=== PATIENT | female | born 1985 | race American Indian/Alaskan Native ===

== ENCOUNTER 2017-02-27 12:07 | Emergency (ER) | payer OTHER ==
[2017-02-27 12:46] VITALS: BP 119/68
== END 2017-02-27 15:27 | disposition home or self-care (01) ==
LOC: ED 12:07
DX: F41.9 Anxiety disorder, unspecified (principal)
CPT/HCPCS: 82962; 99283

== ENCOUNTER 2019-01-14 08:08 | Inpatient (IN) | payer OTHER ==
[2019-01-14] MEDS ORDERED: LACTATED RINGERS 1,000 ML ONE (08:47)
[2019-01-14] MEDS ORDERED: MAGNESIUM SULFATE 40GM/1000ML 40 GM/1,000 ML BAG IV ONE (09:18)
[2019-01-14] MEDS ORDERED: AMPICILLIN/NS 2 GM/100 ML 2 GM/100 ML BAG IV ONE (09:18)
[2019-01-14] MEDS ORDERED: MAGNESIUM SULFATE 4GM/100ML 4 GM/100 ML BAG IV ONE ×2 (09:18→09:20)
[2019-01-14] MEDS: CELESTONE SOLUSPAN IM SCH (09:22)
[2019-01-14] MEDS: AMPICILLIN/NS 2 GM/100 ML 2 GM/100 ML BAG IV SCH ×3 (09:25→23:31)
[2019-01-14 09:27] LABS: Bacteria,Urine 4+ /HPF (Negative); Bilirubin,Urine NEG (Negative); Blood,Urine LG (Negative); Color,Urine Yellow (Yellow); Mucus,Urine 2+ /HPF; Protein,Urine <15 mg/dL mg/dL (Negative)
[2019-01-14] MEDS ORDERED: LACTATED RINGERS 500 ML IV ONE (09:30)
[2019-01-14 09:39] LABS: Basophils # (Auto) 0.1 K/mm3 (0.0-0.1); Basophils % (Auto) 0.5 % (0.0-1.8); Eosinophils % (Auto) 0.1 % (0.0-4.3); Hematocrit 32.6 % (30.3-42.9); Lymphocytes # (Auto) 1.6 K/mm3 (1.2-5.4); Lymphocytes % (Auto) 11.3 % (13.4-35.0); Mean Corpuscular HGB Conc 34 % (30-34); Mean Corpuscular Volume 87 fl (79-97); Monocytes # (Auto) 1.2 K/mm3 (0.0-0.8); Monocytes % (Auto) 8.1 % (0.0-7.3); Platelet Count 203 K/mm3 (140-440); Red Blood Count 3.77 M/mm3 (3.65-5.03); Red Cell Distribution Width 14.5 % (13.2-15.2)
[2019-01-14] MEDS: MAGNESIUM SULFATE 40GM/1000ML 40 GM/1,000 ML BAG IV SCH (10:00)
[2019-01-14] MEDS ORDERED: BRETHINE SUB-Q ONE (10:00)
[2019-01-14] MEDS: STADOL IV PRN (11:55)
--- NOTE | 2019-01-14 12:10 | Ultrasound Report ---
OB ULTRASOUND History: Vaginal bleeding during . Technique: Transabdominal ultrasound with Doppler interrogation. Comparison: None at this facility. Gestation: Single Position: Breech Amniotic Fluid: Normal [place] = 16.4 cm Placenta: Fundal Placental Grade: 0 Heart Rate: 152 BPM Cervical length: The cervix is obscured. No cervical length measurement could be made. The technologist questioned whether there was cervical funneling which I do not clearly see. NEUROANATOMY VISUALIZED: Choroid Plexus Lateral Ventricle ANATOMY VISUALIZED: Stomach Bladder Diaphragm 4 Chamber Heart Heart 3 Vessel Cord Abd. Cord Insert SPINE VISUALIZED: Longitudinal The following are not demonstrated due to maternal body habitus or lie: Cerebellum, cisterna magnum, kidneys and transverse views of the spine BPD: 6.3 cm = 25 w 2 d HC: 23.8 cm = 25 w 6 d AC: 20.8 cm = 25 w 3 d FL: 4.6 cm = 25 w 2 d HC/AC Ratio: 80.7 Cephalic Index: 81.1 Estimated Weight: 808 grams Clinical age = 25 w 3 d EDC: 04/26/19 US Gest. Age = 25 w 3 d EDC: 04/26/19 IMPRESSION: Viable, single intrauterine as described.
--- NOTE | 2019-01-14 12:47 | History and Physical Report ---
History of Present Illness Date of examination: 01/14/19 Date of admission: 01/14/19 09:08 Chief complaint: vaginal bleeding and cramping History of present illness: 33-year-old at 25+3 weeks presents to labor and delivery triage with complaints of vaginal bleeding and uterine cramping. The patient stated she began having intermittent cramping yesterday and awoke this morning with findings of vaginal bleeding. She denies any leakage of fluid. There has not been any precipitating event for her current complaints. She denies any recent sexual intercourse. OB ultrasound in triage demonstrated a dilated cervical os O4 centimeters and a garcia intrauterine and breech presentation. Patient transferred her care @ 17 weeks. Past History Past Medical History: no pertinent history Past Surgical History: no surgical history Social history: - Obstetrical History Expected Date of Delivery: 04/26/19 Actual Gestation: 25 Week(s) 3 Day(s) : 2 Para: 1 Hx # Term Pregnancies: 1 Number of Pregnancies: 0 Spontaneous Abortions: 0 Induced : 0 Number of Living Children: 1 Medications and Allergies Allergies Allergy/AdvReac Type Severity Reaction Status Date / Time No Known Allergies Allergy Verified 01/14/19 09:14 Home Medications Medication Instructions Recorded Confirmed Last Taken Type No Known Home Medications [No 02/27/17 02/27/17 Unknown History Reported Home Medications] Active Meds: Active Medications Betamethasone Acet/Betameth SodPhos (Celestone Soluspan) 12 mg IM Q24HR NELL Stop: 01/15/19 10:01 Last Admin: 01/14/19 09:22 Dose: 12 mg Documented by: Butorphanol Tartrate (Stadol) 2 mg IV Q3H PRN PRN Reason: Labor Pain Last Admin: 01/14/19 11:55 Dose: 2 mg Documented by: Lactated Ringer's (Lactated Ringers) 1,000 mls @ 125 mls/hr IV DIRECT NELL Magnesium Sulfate (Magnesium Sulfate 40gm/1000ml) 40 gm in 1,000 mls @ 50 mls/ hr IV DIRECT NELL Last Admin: 01/14/19 10:00 Dose: 2 gm/hr, 50 mls/hr Documented by: Ampicillin Sodium (Polycillin/Ns 2 Gm/100 Ml) 2 gm in 100 mls @ 100 mls/hr IV Q6H NELL Stop: 01/16/19 03:59 Last Admin: 01/14/19 09:25 Dose: 100 mls/hr Documented by: Review of Systems All systems: negative Genitourinary: vaginal bleeding, pelvic pain, contractions, no leakage of fluid - Vital Signs Vital signs: Vital Signs Pulse BP 126 H 129/74 01/14/19 08:18 01/14/19 08:18 Temp Pulse Resp BP Pulse Ox 111 H 110/58 94 01/14/19 12:43 01/14/19 12:39 01/14/19 12:43 - Physical Exam Breasts: Positive: deferred Cardiovascular: Regular rate Lungs: Positive: Clear to auscultation Vagina: Positive: other (vaginal bleeding) Results Result Diagrams: 01/14/19 09:00 Abnormal lab results 01/14/19 Range/Units 09:00 WBC 14.6 H (4.5-11.0) K/mm3 Lymph % (Auto) 11.3 L (13.4-35.0) % [place] % (Auto) 8.1 H (0.0-7.3) % [place] # 1.2 H (0.0-0.8) K/mm3 Seg Neutrophils % 80.0 H (40.0-70.0) % Seg Neutrophils # 11.7 H (1.8-7.7) K/mm3 All other labs normal. Assessment and Plan - Patient Problems (1) Vaginal bleeding during Current Visit: Yes Status: Acute Plan to address problem: admit for magnesium tocolysis, antibiotics and steroid NICU consult (2) labor Current Visit: Yes Status: Acute
[2019-01-14 13:56] LABS: Hepatitis C Virus Antibody Non-Reactive (NonReactive)
[2019-01-14] MEDS: LACTATED RINGERS 1,000 ML IV SCH (21:35)
--- NOTE | 2019-01-14 22:29 | Consultation ---
History of Present Illness Consult date: 01/14/19 Requesting physician: DEMETRA CARDENAS Reason for consult: prematurity History of present illness: Requested by Dr. Sanchez to inform mother regarding anticipated course and outcome of delivery at 25 completed weeks of a garcia fetus. Met with mother who is a 33 yo [id number] with EDC 04/26/2019 (EGA 25 3/7 wks). Uncomplicated until onset of vaginal bleeding and cramping 01/14. Evaluated in L&D and treated with Magnesium sulfate, Celestone, and ampicillin. U/S demonstrated nl [place], single fetus, breech presentation, dilated cervix, and no evidence of abruption. Since admission, bleeding has decreased and cramping less frequent. Discussed with mother the significance of completion of glucocorticoid treatment in terms of outcome. Advised mother that survival approaches greater than 60% for garcia fetuses following steroids. Discussed the major morbidities including chronic lung disease, necrotizing enterocolitis, late onset sepsis, intraventricular hemorrhage, and neurodevelopmental impairment as potential consequences of delivery at extremely early gestation. Mother listened intently and appears to understand. Assured mother of availability to answer further questions should they arise. Documentation - information: Height 5 ft 2 in Medications and Allergies Allergies Allergy/AdvReac Type Severity Reaction Status Date / Time No Known Allergies Allergy Verified 01/14/19 09:14 Home Medications Medication Instructions Recorded Confirmed Last Taken Type No Known Home Medications [No 02/27/17 02/27/17 Unknown History Reported Home Medications] Active Meds: Active Medications Betamethasone Acet/Betameth SodPhos (Celestone Soluspan) 12 mg IM Q24HR NELL Stop: 01/15/19 10:01 Last Admin: 01/14/19 09:22 Dose: 12 mg Documented by: Butorphanol Tartrate (Stadol) 2 mg IV Q3H PRN PRN Reason: Labor Pain Last Admin: 01/14/19 11:55 Dose: 2 mg Documented by: Lactated Ringer's (Lactated Ringers) 1,000 mls @ 125 mls/hr IV DIRECT NELL Last Admin: 01/14/19 21:35 Dose: 75 mls/hr Documented by: Magnesium Sulfate (Magnesium Sulfate 40gm/1000ml) 40 gm in 1,000 mls @ 50 mls/hr IV DIRECT NELL Last Admin: 01/14/19 10:00 Dose: 2 gm/hr, 50 mls/hr Documented by: Ampicillin Sodium (Polycillin/Ns 2 Gm/100 Ml) 2 gm in 100 mls @ 100 mls/hr IV Q6H NELL Stop: 01/16/19 03:59 Last Admin: 01/14/19 16:25 Dose: 100 mls/hr Documented by: Exam Vital Signs Pulse BP 126 H 129/74 01/14/19 08:18 01/14/19 08:18 Temp Pulse Resp BP Pulse Ox 98.1 F 114 H 16 130/68 97 01/14/19 16:59 01/14/19 21:56 01/14/19 16:59 01/14/19 21:40 01/14/19 21:56 Results - Laboratory Findings 01/14/19 09:00 Abnormal lab results 01/14/19 01/14/19 Range/Units 09:00 17:55 WBC 14.6 H (4.5-11.0) K/mm3 Lymph % (Auto) 11.3 L (13.4-35.0) % [place] % (Auto) 8.1 H (0.0-7.3) % [place] # 1.2 H (0.0-0.8) K/mm3 Seg Neutrophils % 80.0 H (40.0-70.0) % Seg Neutrophils # 11.7 H (1.8-7.7) K/mm3 Magnesium 5.20 H (1.7-2.3) mg/dL
[2019-01-15] MEDS: AMPICILLIN/NS 2 GM/100 ML 2 GM/100 ML BAG IV SCH ×3 (06:32→21:34)
[2019-01-15] MEDS: MAGNESIUM SULFATE 40GM/1000ML 40 GM/1,000 ML BAG IV SCH (06:35)
--- NOTE | 2019-01-15 08:39 | Progress Note ---
Assessment and Plan A/P HD2 PTL s/p 1 dose steroids s/p NICCU on mag consult with MFM continue presnet mgt Subjective - Subjective Date of service: 01/15/19 Principal diagnosis: PTL, vaginal bleeding Patient reports: vaginal bleeding, movement normal, no new complaints, no loss of fluid, no contractions Objective - Vital Signs Vital Signs: Vital Signs - 12hr 01/14/19 01/14/19 01/14/19 20:36 20:38 20:39 Temperature Pulse Rate 115 H 112 H 112 H Respiratory Rate Blood Pressure 120/64 Blood Pressure [Right] O2 Sat by Pulse 97 94 Oximetry 01/14/19 01/14/19 01/14/19 20:41 20:43 20:46 Temperature Pulse Rate 111 H 112 H 113 H Respiratory Rate Blood Pressure Blood Pressure [Right] O2 Sat by Pulse 95 94 96 Oximetry 01/14/19 01/14/19 01/14/19 20:49 20:51 20:54 Temperature Pulse Rate 111 H 111 H 109 H Respiratory Rate Blood Pressure Blood Pressure [Right] O2 Sat by Pulse 94 96 94 Oximetry 01/14/19 01/14/19 01/14/19 20:56 21:01 21:06 Temperature Pulse Rate 111 H 109 H 118 H Respiratory Rate Blood Pressure Blood Pressure [Right] O2 Sat by Pulse 95 96 96 Oximetry 01/14/19 01/14/19 01/14/19 21:09 21:11 21:16 Temperature Pulse Rate 112 H 111 H 112 H Respiratory Rate Blood Pressure 119/58 Blood Pressure [Right] O2 Sat by Pulse 96 95 Oximetry 01/14/19 01/14/19 01/14/19 21:19 21:21 21:25 Temperature Pulse Rate 113 H 109 H 113 H Respiratory Rate Blood Pressure Blood Pressure [Right] O2 Sat by Pulse 94 97 94 Oximetry 01/14/19 01/14/19 01/14/19 21:26 21:31 21:33 Temperature Pulse Rate 120 H 114 H 119 H Respiratory Rate Blood Pressure Blood Pressure [Right] O2 Sat by Pulse 96 95 94 Oximetry 01/14/19 01/14/19 01/14/19 21:36 21:38 21:40 Temperature Pulse Rate 116 H 116 H 111 H Respiratory Rate Blood Pressure 130/68 Blood Pressure [Right] O2 Sat by Pulse 96 94 Oximetry 0301/14/19 01/14/19 21:41 21:44 21:46 Temperature Pulse Rate 110 H 112 H 112 H Respiratory Rate Blood Pressure Blood Pressure [Right] O2 Sat by Pulse 94 94 95 Oximetry 01/14/19 01/14/19 01/14/19 21:51 21:56 21:58 Temperature Pulse Rate 112 H 114 H 115 H Respiratory Rate Blood Pressure Blood Pressure [Right] O2 Sat by Pulse 96 97 94 Oximetry 01/14/19 01/14/19 01/14/19 22:01 22:06 22:09 Temperature Pulse Rate 114 H 113 H 113 H Respiratory Rate Blood Pressure 130/70 Blood Pressure [Right] O2 Sat by Pulse 97 97 91 Oximetry 01/14/19 01/14/19 01/14/19 22:11 22:16 22:21 Temperature Pulse Rate 115 H 107 H 107 H Respiratory Rate Blood Pressure Blood Pressure [Right] O2 Sat by Pulse 96 95 96 Oximetry 01/14/19 01/14/19 01/14/19 22:26 22:31 22:36 Temperature Pulse Rate 111 H 110 H 111 H Respiratory Rate Blood Pressure Blood Pressure [Right] O2 Sat by Pulse 97 96 97 Oximetry 01/14/19 01/14/19 01/14/19 22:39 22:41 22:46 Temperature Pulse Rate 108 H 114 H 112 H Respiratory Rate Blood Pressure 115/63 Blood Pressure [Right] O2 Sat by Pulse 95 94 Oximetry 01/14/19 01/14/19 01/14/19 22:47 22:51 22:55 Temperature Pulse Rate 111 H 111 H 109 H Respiratory Rate Blood Pressure Blood Pressure [Right] O2 Sat by Pulse 94 95 94 Oximetry 01/14/19 01/14/19 01/14/19 22:56 23:01 23:06 Temperature Pulse Rate 111 H 111 H 110 H Respiratory Rate Blood Pressure Blood Pressure [Right] O2 Sat by Pulse 95 94 94 Oximetry 01/14/19 01/14/19 01/14/19 23:07 23:09 23:11 Temperature Pulse Rate 106 H 110 H 110 H Respiratory Rate Blood Pressure 113/60 Blood Pressure [Right] O2 Sat by Pulse 94 94 Oximetry 01/14/19 01/14/19 01/14/19 23:14 23:16 23:21 Temperature Pulse Rate 112 H 110 H 106 H Respiratory Rate Blood Pressure Blood Pressure [Right] O2 Sat by Pulse 93 93 94 Oximetry 01/14/19 01/14/19 01/14/19 23:26 23:27 23:31 Temperature Pulse Rate 107 H 107 H 107 H Respiratory Rate Blood Pressure Blood Pressure [Right] O2 Sat by Pulse 94 94 94 Oximetry 01/14/19 01/14/19 01/14/19 23:34 23:36 23:40 Temperature Pulse Rate 114 H 109 H 113 H Respiratory Rate Blood Pressure 121/58 Blood Pressure [Right] O2 Sat by Pulse 94 95 Oximetry 01/14/19 01/14/19 01/14/19 23:41 23:43 23:45 Temperature 98.2 F Pulse Rate 107 H 107 H 113 H Respiratory 18 Rate Blood Pressure Blood Pressure 121/58 [Right] O2 Sat by Pulse 96 94 Oximetry 01/14/19 01/14/19 01/14/19 23:46 23:51 23:56 Temperature Pulse Rate 106 H 112 H 108 H Respiratory Rate Blood Pressure Blood Pressure [Right] O2 Sat by Pulse 94 96 95 Oximetry 01/15/19 01/15/19 01/15/19 00:01 00:06 00:09 Temperature Pulse Rate 108 H 103 H 102 H Respiratory Rate Blood Pressure 116/62 Blood Pressure [Right] O2 Sat by Pulse 95 96 Oximetry 01/15/19 01/15/19 01/15/19 00:11 00:16 00:21 Temperature Pulse Rate 107 H 100 H 100 H Respiratory Rate Blood Pressure Blood Pressure [Right] O2 Sat by Pulse 94 96 97 Oximetry 01/15/19 01/15/19 01/15/19 00:26 00:31 00:36 Temperature Pulse Rate 100 H 105 H 103 H Respiratory Rate Blood Pressure Blood Pressure [Right] O2 Sat by Pulse 96 96 95 Oximetry 01/15/19 01/15/19 01/15/19 00:39 00:41 00:46 Temperature Pulse Rate 101 H 103 H 112 H Respiratory Rate Blood Pressure 120/67 Blood Pressure [Right] O2 Sat by Pulse 97 94 Oximetry 01/15/19 01/15/19 01/15/19 00:51 00:56 01:01 Temperature Pulse Rate 104 H 103 H 108 H Respiratory Rate Blood Pressure Blood Pressure [Right] O2 Sat by Pulse 96 96 95 Oximetry 01/15/19 01/15/19 01/15/19 01:06 01:09 01:11 Temperature Pulse Rate 105 H 102 H 107 H Respiratory Rate Blood Pressure 120/69 Blood Pressure [Right] O2 Sat by Pulse 95 94 Oximetry 01/15/19 01/15/19 01/15/19 01:16 01:21 01:26 Temperature Pulse Rate 106 H 104 H 107 H Respiratory Rate Blood Pressure Blood Pressure [Right] O2 Sat by Pulse 96 95 95 Oximetry 01/15/19 01/15/19 01/15/19 01:31 01:36 01:39 Temperature Pulse Rate 111 H 117 H 114 H Respiratory Rate Blood Pressure 118/64 Blood Pressure [Right] O2 Sat by Pulse 96 95 Oximetry 01/15/19 01/15/19 01/15/19 01:41 01:47 01:51 Temperature Pulse Rate 112 H 107 H 106 H Respiratory Rate Blood Pressure Blood Pressure [Right] O2 Sat by Pulse 95 96 96 Oximetry 01/15/19 01/15/19 01/15/19 01:56 02:01 02:06 Temperature Pulse Rate 106 H 105 H 105 H Respiratory Rate Blood Pressure Blood Pressure [Right] O2 Sat by Pulse 95 95 96 Oximetry 01/15/19 01/15/19 01/15/19 02:10 02:12 02:16 Temperature Pulse Rate 106 H 105 H 105 H Respiratory Rate Blood Pressure 113/57 Blood Pressure [Right] O2 Sat by Pulse 96 95 Oximetry 01/15/19 01/15/19 01/15/19 02:21 02:26 02:32 Temperature Pulse Rate 107 H 107 H 107 H Respiratory Rate Blood Pressure Blood Pressure [Right] O2 Sat by Pulse 95 95 95 Oximetry 01/15/19 01/15/19 01/15/19 02:36 02:39 02:41 Temperature Pulse Rate 105 H 109 H 105 H Respiratory Rate Blood Pressure 119/62 Blood Pressure [Right] O2 Sat by Pulse 96 97 Oximetry 01/15/19 01/15/19 01/15/19 02:46 02:51 02:56 Temperature Pulse Rate 107 H 104 H 105 H Respiratory Rate Blood Pressure Blood Pressure [Right] O2 Sat by Pulse 96 96 98 Oximetry 01/15/19 01/15/19 01/15/19 03:01 03:06 03:09 Temperature Pulse Rate 103 H 109 H 102 H Respiratory Rate Blood Pressure 117/63 Blood Pressure [Right] O2 Sat by Pulse 97 99 Oximetry 01/15/19 01/15/19 01/15/19 03:11 03:16 03:21 Temperature Pulse Rate 109 H 104 H 103 H Respiratory Rate Blood Pressure Blood Pressure [Right] O2 Sat by Pulse 98 98 97 Oximetry 01/15/19 01/15/19 01/15/19 03:26 03:31 03:36 Temperature Pulse Rate 103 H 103 H 104 H Respiratory Rate Blood Pressure Blood Pressure [Right] O2 Sat by Pulse 97 96 96 Oximetry 01/15/19 01/15/19 01/15/19 03:39 03:42 03:47 Temperature Pulse Rate 108 H 103 H 101 H Respiratory Rate Blood Pressure 121/65 Blood Pressure [Right] O2 Sat by Pulse 97 97 Oximetry 01/15/19 01/15/19 01/15/19 03:52 03:56 04:01 Temperature Pulse Rate 103 H 104 H 101 H Respiratory Rate Blood Pressure Blood Pressure [Right] O2 Sat by Pulse 96 96 96 Oximetry 01/15/19 01/15/19 01/15/19 04:07 04:09 04:11 Temperature Pulse Rate 110 H 114 H 106 H Respiratory Rate Blood Pressure 130/57 Blood Pressure [Right] O2 Sat by Pulse 97 97 Oximetry 01/15/19 01/15/19 01/15/19 04:16 04:22 04:26 Temperature Pulse Rate 113 H 107 H 114 H Respiratory Rate Blood Pressure Blood Pressure [Right] O2 Sat by Pulse 95 97 97 Oximetry 01/15/19 01/15/19 01/15/19 04:31 04:37 04:39 Temperature Pulse Rate 107 H 107 H 106 H Respiratory Rate Blood Pressure 121/67 Blood Pressure [Right] O2 Sat by Pulse 96 97 Oximetry 01/15/19 01/15/19 01/15/19 04:42 04:46 04:52 Temperature Pulse Rate 111 H 109 H 110 H Respiratory Rate Blood Pressure Blood Pressure [Right] O2 Sat by Pulse 97 96 95 Oximetry 01/15/19 01/15/19 01/15/19 04:57 05:00 05:02 Temperature 98.2 F Pulse Rate 107 H 108 H 106 H Respiratory 18 Rate Blood Pressure Blood Pressure 108/59 [Right] O2 Sat by Pulse 95 95 Oximetry 01/15/19 01/15/19 01/15/19 05:07 05:09 05:12 Temperature Pulse Rate 106 H 106 H 103 H Respiratory Rate Blood Pressure 110/63 Blood Pressure [Right] O2 Sat by Pulse 95 95 Oximetry 01/15/19 01/15/19 01/15/19 05:17 05:22 05:27 Temperature Pulse Rate 108 H 113 H 113 H Respiratory Rate Blood Pressure Blood Pressure [Right] O2 Sat by Pulse 95 96 96 Oximetry 01/15/19 01/15/19 01/15/19 05:32 05:37 05:39 Temperature Pulse Rate 108 H 109 H 108 H Respiratory Rate Blood Pressure 108/59 Blood Pressure [Right] O2 Sat by Pulse 97 96 Oximetry 01/15/19 01/15/19 01/15/19 05:42 05:47 05:52 Temperature Pulse Rate 108 H 107 H 111 H Respiratory Rate Blood Pressure Blood Pressure [Right] O2 Sat by Pulse 96 95 96 Oximetry 01/15/19 01/15/19 01/15/19 05:57 06:02 06:07 Temperature Pulse Rate 106 H 112 H 105 H Respiratory Rate Blood Pressure Blood Pressure [Right] O2 Sat by Pulse 97 98 98 Oximetry 01/15/19 01/15/19 01/15/19 06:09 06:12 06:17 Temperature Pulse Rate 106 H 109 H 108 H Respiratory Rate Blood Pressure 116/65 Blood Pressure [Right] O2 Sat by Pulse 98 97 Oximetry 01/15/19 01/15/19 01/15/19 06:22 06:24 06:26 Temperature Pulse Rate 104 H 107 H 108 H Respiratory Rate Blood Pressure Blood Pressure [Right] O2 Sat by Pulse 97 91 96 Oximetry 01/15/19 01/15/19 01/15/19 06:32 06:37 06:39 Temperature Pulse Rate 109 H 109 H 106 H Respiratory Rate Blood Pressure 113/62 Blood Pressure [Right] O2 Sat by Pulse 96 96 Oximetry 01/15/19 01/15/19 01/15/19 06:42 06:47 06:52 Temperature Pulse Rate 109 H 110 H 108 H Respiratory Rate Blood Pressure Blood Pressure [Right] O2 Sat by Pulse 94 80 L 88 Oximetry 01/15/19 01/15/19 01/15/19 06:57 07:02 07:07 Temperature Pulse Rate 107 H 108 H 107 H Respiratory Rate Blood Pressure Blood Pressure [Right] O2 Sat by Pulse 88 88 89 Oximetry 0301/15/19 01/15/19 07:09 07:12 07:13 Temperature Pulse Rate 107 H 109 H Respiratory Rate Blood Pressure 112/57 Blood Pressure [Right] O2 Sat by Pulse 88 89 Oximetry 01/15/19 01/15/19 01/15/19 07:17 07:22 07:27 Temperature Pulse Rate 111 H 105 H 106 H Respiratory Rate Blood Pressure Blood Pressure [Right] O2 Sat by Pulse 97 95 95 Oximetry 01/15/19 01/15/19 01/15/19 07:32 07:37 07:39 Temperature Pulse Rate 106 H 103 H 102 H Respiratory Rate Blood Pressure 104/56 Blood Pressure [Right] O2 Sat by Pulse 95 95 Oximetry 01/15/19 01/15/19 01/15/19 07:42 07:47 07:52 Temperature Pulse Rate 103 H 103 H 108 H Respiratory Rate Blood Pressure Blood Pressure [Right] O2 Sat by Pulse 96 95 94 Oximetry 01/15/19 01/15/19 01/15/19 07:57 08:02 08:07 Temperature Pulse Rate 105 H 107 H 110 H Respiratory Rate Blood Pressure Blood Pressure [Right] O2 Sat by Pulse 95 96 95 Oximetry 01/15/19 01/15/19 01/15/19 08:09 08:12 08:17 Temperature Pulse Rate 110 H 106 H 105 H Respiratory Rate Blood Pressure 107/61 Blood Pressure [Right] O2 Sat by Pulse 96 96 Oximetry 01/15/19 01/15/19 01/15/19 08:22 08:24 08:27 Temperature Pulse Rate 102 H 114 H 104 H Respiratory Rate Blood Pressure Blood Pressure [Right] O2 Sat by Pulse 95 92 95 Oximetry 01/15/19 08:32 Temperature Pulse Rate 111 H Respiratory Rate Blood Pressure Blood Pressure [Right] O2 Sat by Pulse 97 Oximetry - Exam Breasts: deferred Cardiovascular: Regular rate, Normal S1 Lungs: Clear to auscultation, Normal air movement Abdomen: Present: normal appearance, normal bowel sounds. Absent: soft, tenderness, guarding Vulva: both: normal Uterus: Present: normal, firm, fundal height below umbilicus. Absent: bogginess, tenderness FHR: category 1 Uterine Contraction Pattern: Irregular Uterine Tone Measurement Phase: Resting Uterine Contraction Intensity: Mild Extremities: normal Deep Tendon Reflex Grade: Normal +2 - Labs Labs: Abnormal Labs 01/14/19 01/14/19 01/15/19 09:00 17:55 00:18 WBC 14.6 H Lymph % (Auto) 11.3 L [place] % (Auto) 8.1 H [place] # 1.2 H Seg Neutrophils % 80.0 H Seg Neutrophils # 11.7 H Magnesium 5.20 H 5.60 H 01/15/19 05:50 WBC Lymph % (Auto) [place] % (Auto) [place] # Seg Neutrophils % Seg Neutrophils # Magnesium 5.60 H Laboratory Results - last 24 hr 01/14/19 01/14/19 01/14/19 09:00 09:00 09:00 WBC 14.6 H RBC 3.77 Hgb 11.0 Hct 32.6 MCV 87 MCH 29 MCHC 34 RDW 14.5 Plt Count 203 Lymph % (Auto) 11.3 L [place] % (Auto) 8.1 H Eos % (Auto) 0.1 Baso % (Auto) 0.5 Lymph # 1.6 [place] # 1.2 H Eos # 0.0 Baso # 0.1 Seg Neutrophils % 80.0 H Seg Neutrophils # 11.7 H Magnesium Urine Color Yellow Urine Turbidity Clear Urine pH 6.0 Ur Specific [place] 1.023 Urine Protein <15 mg/dl Urine Glucose (UA) Neg Urine Ketones Tr Urine Blood Lg Urine Nitrite Pos Urine Bilirubin Neg Urine Urobilinogen 2.0 Ur Leukocyte Esterase Sm Urine WBC (Auto) 5.0 Urine RBC (Auto) 8.0 U Epithel Cells (Auto) 3.0 Urine Bacteria (Auto) 4+ Urine Mucus 2+ Hep Bs Antigen Hepatitis C Antibody HIV 1&2 Antibody Rapid HIV P24 Antigen Rubella IgG Antibody Blood Type A POSITIVE Antibody Screen Negative 01/14/19 01/14/19 01/14/19 09:00 09:00 13:36 WBC RBC Hgb Hct MCV MCH MCHC RDW Plt Count Lymph % (Auto) [place] % (Auto) Eos % (Auto) Baso % (Auto) Lymph # [place] # Eos # Baso # Seg Neutrophils % Seg Neutrophils # Magnesium Urine Color Urine Turbidity Urine pH Ur Specific [place] Urine Protein Urine Glucose (UA) Urine Ketones Urine Blood Urine Nitrite Urine Bilirubin Urine Urobilinogen Ur Leukocyte Esterase Urine WBC (Auto) Urine RBC (Auto) U Epithel Cells (Auto) Urine Bacteria (Auto) Urine Mucus Hep Bs Antigen Non-reactive Hepatitis C Antibody Non-reactive HIV 1&2 Antibody Rapid Non react HIV P24 Antigen Non react Rubella IgG Antibody Immune Blood Type Antibody Screen 01/14/19 01/15/19 01/15/19 17:55 00:18 05:50 WBC RBC Hgb Hct MCV MCH MCHC RDW Plt Count Lymph % (Auto) [place] % (Auto) Eos % (Auto) Baso % (Auto) Lymph # [place] # Eos # Baso # Seg Neutrophils % Seg Neutrophils # Magnesium 5.20 H 5.60 H 5.60 H Urine Color Urine Turbidity Urine pH Ur Specific [place] Urine Protein Urine Glucose (UA) Urine Ketones Urine Blood Urine Nitrite Urine Bilirubin Urine Urobilinogen Ur Leukocyte Esterase Urine WBC (Auto) Urine RBC (Auto) U Epithel Cells (Auto) Urine Bacteria (Auto) Urine Mucus Hep Bs Antigen Hepatitis C Antibody HIV 1&2 Antibody Rapid HIV P24 Antigen Rubella IgG Antibody Blood Type Antibody Screen
[2019-01-15] MEDS: CELESTONE SOLUSPAN IM SCH (09:36)
[2019-01-15] MEDS: LACTATED RINGERS 1,000 ML IV SCH (09:39)
[2019-01-15 10:18] LABS: Amphetamine Screen,Urine PRESUMPTIVE NEGATIVE; Benzodiazepines Screen,Urine PRESUMPTIVE NEGATIVE; Cannabinoid Screen,Urine PRESUMPTIVE NEGATIVE; Cocaine Screen,Urine PRESUMPTIVE NEGATIVE; Methadone Screen,Urine PRESUMPTIVE NEGATIVE; Opiate Screen,Urine PRESUMPTIVE NEGATIVE
--- NOTE | 2019-01-15 13:36 | Consultation ---
History of Present Illness Consult date: 01/15/19 Requesting physician: CHING BUCHANAN History of present illness: APA/MFM HPI 33 y/o LAURA 04/26/19 EGA 25 01/25 weeks req consult for vag bleeding and cervical dilation Presented yesterday morning with vaginal bleeding Bleeding started around 6 am - had suspected contractions - describes bleeding as heavy and resolved yesterday evening Still reports spotting today Denies intercourse Denies complications Receiving Steroids and Mg OB History 2004 Term F Denies med ds, surgery, allergies, STD's or C/D/D Labs UA - 4+ bact, WBC -5, RBC - 5 H/H , Plts at 203 Drug Screen Neg US [facility] - 01/14/19 EFW at 808 grams at 41% Placenta Fundal - did not mention if abruption seen Cervix noted to be 4 cm dilated Breech BP at 120/62 EFM at 120's no reg contractions Abd soft gravid NT Vag deferred - will req OB do spec Past History Past Medical History: no pertinent history Past Surgical History: no surgical history - Obstetrical History : 2 Medications and Allergies Allergies Allergy/AdvReac Type Severity Reaction Status Date / Time No Known Allergies Allergy Verified 01/14/19 09:14 Home Medications Medication Instructions Recorded Confirmed Last Taken Type No Known Home Medications [No 02/27/17 02/27/17 Unknown History Reported Home Medications] Active Meds: Active Medications Butorphanol Tartrate (Stadol) 2 mg IV Q3H PRN PRN Reason: Labor Pain Last Admin: 01/14/19 11:55 Dose: 2 mg Documented by: Lactated Ringer's (Lactated Ringers) 1,000 mls @ 125 mls/hr IV DIRECT NELL Last Admin: 01/15/19 09:39 Dose: 75 mls/hr Documented by: Magnesium Sulfate (Magnesium Sulfate 40gm/1000ml) 40 gm in 1,000 mls @ 50 mls/hr IV DIRECT NELL Last Admin: 01/15/19 06:35 Dose: 50 mls/hr Documented by: Ampicillin Sodium (Polycillin/Ns 2 Gm/100 Ml) 2 gm in 100 mls @ 100 mls/hr IV Q6H NELL Stop: 01/16/19 03:59 Last Admin: 01/15/19 10:48 Dose: 100 mls/hr Documented by: - Vital Signs Vital signs: Vital Signs Pulse BP 126 H 129/74 01/14/19 08:18 01/14/19 08:18 Temp Pulse Resp BP Pulse Ox 98.2 F 129 H 18 120/62 94 01/15/19 05:00 01/15/19 13:22 01/15/19 05:00 01/15/19 12:51 01/15/19 13:22 Results Result Diagrams: 01/14/19 09:00 Abnormal lab results 01/14/19 01/15/19 01/15/19 Range/Units 17:55 00:18 05:50 Magnesium 5.20 H 5.60 H 5.60 H (1.7-2.3) mg/dL All other labs normal. Assessment and Plan Impression: 1. H[place]ins IUP at 25 4/7 we 2. Vag Bleeding 3. Cervical Dilation 4. UTI 5. AMA 6. Breech Recommendations: 1. Steroids for FLM 2. Mg X 24 Hours for neuroprophylaxis then may dc 3. Send Urine for C&S if not done 4. NICU consult if not done 5. Seq Leg compressors 6. Please do Spec to see if membranes protruding and if ext os dilated 7. Type and Rh if not done (Rhogam if rh neg) 8. Disposition pending spec exam - If 4 cm dilated and still bleeding would rec in house conservative management. 9. Antibiotics for UTI - (currently on Amp) 10. Consent for C/S should bleeding worsen and also breech presentation
[2019-01-15] MEDS ORDERED: ROCEPHIN/NS 1 GM/50 ML 1 GM/50 ML BAG IV SCH (18:30)
[2019-01-16] MEDS: LACTATED RINGERS 1,000 ML IV SCH (02:00)
[2019-01-16] MEDS: MAGNESIUM SULFATE 40GM/1000ML 40 GM/1,000 ML BAG IV SCH (02:03)
[2019-01-16] MEDS: AMPICILLIN/NS 2 GM/100 ML 2 GM/100 ML BAG IV SCH (05:54)
--- NOTE | 2019-01-16 09:07 | Progress Note ---
Assessment and Plan A/P HD3 PTL, vaginal bleeding s/p 2 dose steroids s/p NICCU on mag appreciate consult from MFM rechecked cervicx and speculum exam membranes visualized prepare for csec ( ate at 7a) anticipate proceeding at 2p Patient had a long discussion of r/b/a of csec which include but not limited to bleeding infection damage to pelvic and non pelvic organs risk of hysterectomy risk of . Patient and voiced agreement to proceed Risk of prematurity discussed and patient continues to want a salpingectomy Subjective - Subjective Date of service: 01/16/19 Principal diagnosis: PTL, vaginal bleeding Patient reports: vaginal bleeding, movement normal, no new complaints, no loss of fluid, no contractions Objective - Vital Signs Vital Signs: Vital Signs - 12hr 01/15/19 01/16/19 01/16/19 21:49 02:49 03:49 Pulse Rate 100 H 100 H 91 H Blood Pressure 108/57 107/56 104/54 01/16/19 01/16/19 01/16/19 04:49 05:49 06:49 Pulse Rate 94 H 92 H 91 H Blood Pressure 101/52 104/52 102/55 01/16/19 01/16/19 07:52 08:51 Pulse Rate 102 H 115 H Blood Pressure 105/56 103/58 - Exam Breasts: deferred Cardiovascular: Regular rate, Normal S1 Lungs: Clear to auscultation, Normal air movement Abdomen: Present: normal appearance, soft, normal bowel sounds. Absent: distention, tenderness, guarding Vulva: both: normal Uterus: Present: normal, firm. Absent: bogginess, tenderness FHR: category 1 Cervical Dilatation: 5 Cervical Effacement Percentage: 90 station: -2 - Labs Labs: Abnormal Labs 01/14/19 01/14/19 01/15/19 09:00 17:55 00:18 WBC 14.6 H Lymph % (Auto) 11.3 L Dewitt % (Auto) 8.1 H Dewitt # 1.2 H Seg Neutrophils % 80.0 H Seg Neutrophils # 11.7 H Magnesium 5.20 H 5.60 H 01/15/19 05:50 WBC Lymph % (Auto) Dewitt % (Auto) Dewitt # Seg Neutrophils % Seg Neutrophils # Magnesium 5.60 H Laboratory Results - last 24 hr 01/15/19 09:05 Urine Opiates Screen Presumptive negative Urine Methadone Screen Presumptive negative Ur Barbiturates Screen Presumptive negative Ur Phencyclidine Scrn Presumptive negative Ur Amphetamines Screen Presumptive negative U Benzodiazepines Scrn Presumptive negative Urine Cocaine Screen Presumptive negative U Marijuana (THC) Screen Presumptive negative Drugs of Abuse Note Disclamer
[2019-01-16] MEDS: STADOL IV PRN (11:45)
[2019-01-16] MEDS ORDERED: AMPICILLIN/NS 2 GM/100 ML 2 GM/100 ML BAG IV ONE (12:00)
--- NOTE | 2019-01-16 12:57 | Event Note ---
Date: 01/16/19 Patient rechecked and denies any contractions.Bleeding has stopped ( for 2 days) and cervix still same at 5cm. Discussed with and patient and as patient has not been checked prior this was first check. NST reactive no contractions. Will continue to closely observe and if any bleeding increased, contractions or change in cervix will then proceed with csec secondary to breech. We discussed benefit to baby with more time in utero. Patient and both agree with plan
[2019-01-16] MEDS ORDERED: PEPCID IV ONE ×2 (19:40→19:45)
[2019-01-16] MEDS ORDERED: REGLAN IV ONE (19:40)
[2019-01-16] MEDS ORDERED: BICITRA PO ONE (19:42)
[2019-01-16] MEDS ORDERED: REGLAN ONE (19:45)
[2019-01-16] MEDS ORDERED: BICITRA ONE (19:45)
[2019-01-16] MEDS ORDERED: PITOCin/NS 20 UNIT/1000ML DRIP 20 UNITS/1,000 ML BAG IV SCH (20:00)
[2019-01-16] MEDS ORDERED: ANCEF/STERILE WATER 2 GM/20 ML IV NR (20:00)
[2019-01-16] MEDS ORDERED: DIPRIVAN 10 MG/ML IV ONE (20:15)
[2019-01-16] MEDS ORDERED: DECADRON ONE (20:23)
[2019-01-16] MEDS ORDERED: XYLOCAINE MPF 2% ONE (20:23)
[2019-01-16] MEDS ORDERED: ZOFRAN ONE (20:23)
[2019-01-16] MEDS ORDERED: SUBLIMAZE ONE (20:28)
[2019-01-16] MEDS ORDERED: VERSED ONE (20:29)
[2019-01-16] MEDS ORDERED: TORADOL ONE (20:32)
[2019-01-16] MEDS ORDERED: WATER FOR INJ Sterile (PF) 10 ML ONE (20:44)
[2019-01-16] MEDS ORDERED: ANCEF ONE (20:44)
[2019-01-16] MEDS ORDERED: DILAUDID ONE (21:07)
[2019-01-16] MEDS ORDERED: LACTATED RINGERS 2,000 ML ONE (21:12)
--- NOTE | 2019-01-16 21:30 | XRay Report ---
PROCEDURE: XR ABDOMEN 1V AP TECHNIQUE: Abdominal radiograph, single view. HISTORY: post fb count COMPARISONS: None . FINDINGS: Bowel gas pattern: Nonspecific . Masses or calcifications: None . Bony structures: No significant abnormality . Other: There are no radiopaque foreign bodies . IMPRESSION: No radiopaque foreign bodies. . This document is electronically signed by Jovan Holley MD., January 16 2019 09:29:00 PM ET
[2019-01-16] MEDS ORDERED: NARCAN 0.4 MG/1 ML IV PRN (21:56)
[2019-01-16] MEDS ORDERED: BENADRYL IV PRN (21:56)
[2019-01-16] MEDS ORDERED: ZOFRAN IV PRN (21:56)
[2019-01-16] MEDS ORDERED: NACL 0.9% 1000 ML 1,000 ML IV SCH (22:00)
[2019-01-16] MEDS ORDERED: DILAUDID PCA 6MG/30ML IV SCH (22:00)
--- NOTE | 2019-01-16 22:11 | Event Note ---
Date: 01/16/19 Called by nursing staff at approximately 1920 stating that fetus was having variable decelerations to 60s. I advised staff to prepare patient for . While en route to the hospital, I received a call stating that the patient had SROM and that there were parts in the vagina. Upon arrival patient was being transported to the OR for emergent .
--- NOTE | 2019-01-16 22:13 | Procedure Note ---
OB Delivery Note - Delivery Date of Delivery: 01/16/19 Surgeon: CHARITY MCCRAY Estimated blood loss: other (700) - Section Preop diagnosis: nonreassuring FHR tracing, breech Postop diagnosis: same section procedure: primary low transverse Disposition: PACU Complications: none Narrative: see op report - Infant A at 1 minute: 7 at 5 minutes: 8 Gender: Male (2pounds 1 ounce)
[2019-01-17] MEDS ORDERED: SODIUM CHLORIDE FLUSH SYRINGE 10 ML IV PRN (00:09)
[2019-01-17] MEDS ORDERED: PITOCin/NS 20 UNIT/1000ML DRIP 20 UNITS/1,000 ML BAG IV SCH (00:09)
[2019-01-17] MEDS ORDERED: TUCKS PAD TP PRN (00:09)
[2019-01-17] MEDS ORDERED: NARCAN 0.4 MG/1 ML IV PRN (00:09)
[2019-01-17] MEDS ORDERED: DILAUDID IV PRN (00:09)
[2019-01-17] MEDS ORDERED: LANSINOH TP PRN (00:09)
[2019-01-17] MEDS: SENOKOT S PO SCH ×2 (00:45→21:41)
[2019-01-17] MEDS: PERCOCET 5/325 PO PRN ×2 (12:42→23:26)
[2019-01-17] MEDS: IBUPROFEN PO PRN (12:42)
[2019-01-17 13:43] LABS: Hematocrit 21.8 % (30.3-42.9); Hemoglobin 7.4 gm/dl (10.1-14.3)
--- NOTE | 2019-01-17 13:49 | Progress Note ---
Assessment and Plan POD1 s/p for PTL, abruption and breech presentation. Patient doing well. She has not been down to see baby yet. Encourage ambulation. Subjective - Subjective Date of service: 01/17/19 Principal diagnosis: PTL, vaginal bleeding Interval history: S/P primary LTCS. Patient reports: appetite normal, voiding normally, pain well controlled, flatus, ambulating normally : in NICU Objective - Vital Signs Latest vital signs: Vital Signs Temp Pulse Resp BP Pulse Ox 01/17/19 12:42 20 01/17/19 12:00 20 01/17/19 10:05 20 01/17/19 09:27 98.4 F 105 H 20 108/56 98 01/17/19 08:15 20 01/17/19 06:00 18 01/17/19 04:59 98.8 F 109 H 20 114/64 94 01/17/19 04:00 16 01/17/19 02:00 16 01/17/19 00:55 98.3 F 109 H 24 119/61 86 01/17/19 00:45 18 01/16/19 22:30 100 H 20 124/67 100 01/16/19 22:15 98.2 F 100 H 19 127/71 100 01/16/19 22:00 113 H 19 131/70 100 01/16/19 21:45 114 H 18 127/71 100 01/16/19 21:40 113 H 14 125/70 88 01/16/19 21:37 98.1 F 121 H 16 127/66 88 01/16/19 20:02 112 H 100 01/16/19 19:57 107 H 100 01/16/19 19:52 103 H 95 01/16/19 19:47 106 H 97 01/16/19 18:50 96 H 105/50 01/16/19 17:51 97 H 106/56 01/16/19 17:49 99 H 105/55 01/16/19 16:49 98 H 109/52 01/16/19 16:18 98.3 F 18 01/16/19 15:49 95 H 109/55 01/16/19 14:51 96 H 108/54 01/16/19 13:49 90 104/57 Intake and Output 01/16/19 01/17/19 01/17/19 22:59 06:59 14:59 Intake Total 480 Output Total 500 350 Balance -500 130 Intake: Intake, Free Water 480 Output: Urine 500 350 Indwelling Catheter 350 Uretheral ([place]) 500 Other: Total, Output Amount 350 Estimated Blood Loss 500 - Exam Breasts: Present: deferred Cardiovascular: Present: Regular rate, Normal S1, Normal S2 Lungs: Present: Clear to auscultation, Normal air movement Abdomen: Present: normal appearance, soft, normal bowel sounds Uterus: Present: normal, firm Extremities: Present: normal Deep Tendon Reflex Grade: Normal +2 Incision: Present: normal, dry, intact, dressed - Labs Labs: Abnormal lab results 01/17/19 Range/Units 13:14 Hgb 7.4 L (10.1-14.3) gm/dl Hct 21.8 L (30.3-42.9) %
[2019-01-17] MEDS: FEOSOL PO SCH (21:41)
[2019-01-18] MEDS: PERCOCET 5/325 PO PRN ×3 (05:38→23:21)
[2019-01-18] MEDS: FEOSOL PO SCH ×2 (09:06→21:55)
[2019-01-18] MEDS: SENOKOT S PO SCH ×2 (09:06→21:56)
--- NOTE | 2019-01-18 11:31 | Operative Report ---
Operative Report Operative Report: The operative report for patient Reena De Oliveira Date of service 01/16/2019 Preoperative diagnosis: Intrauterine at 25 2/7weeks 2. Placental abruption 3. labor 4. Breech presentation 5. PPROM Postoperative diagnosis: Same Procedure: Primary low transverse section Surgeon: Dr. Jasmyne Quispe EBL: 900 Urine output: 200 IV fluids: 1200 Findings: Viable male in the footling breech position. Weight 2 lbs. 11 oz. 1401 Apgars 7 and 8]. Otherwise normal pelvic anatomy Specimens: None Complications: The surgery was, located by the presentation of the fetus. He had begun to deliver through the vagina with both free as presenting parts into the vagina. Because of this the uterus had to be cut in a T incision Procedure: The patient was admitted to the OR with IV running and in place. She was properly identified as herself. She was placed in the dorsal supine position with a leftward tilt. She was then prepped and draped in the normal sterile fashion. She was then placed under general anesthesia. As soon as the patient was asleep, the incision was made with the scalpel and carried to the underlying fascia using the scalpel and the Bovie. The fascia was incised in the midline and incision was extended bilaterally using the curved Danielson scissors. The fascia was then dissected from the underlying rectus muscles in a series of sharp and blunt dissection using the Danielson scissors. Muscles were in the in the midline sharply using Metzenbaum scissors and the peritoneum was entered into bluntly using the surgeon's fingers. A bladder blade was then placed into the incision to protect the bladder. Following this the bladder flap was created. Hysterotomy incision was then made in the scalpel. Upon uterine entry, a large clot was extruded from the wall of the uterus, the amniotic sac was then ruptured for clear fluid. The torso of the infant and his arm was at the level of the uterine incision. Both feet were in the vagina and the head was further up into the uterus. Because we were unable to retrieve the lower parts of the the decision was then made to extend the excision vertically using the bandage scissors thus creating a T shaped incision on the uterus. This allowed us to grasp and deliver the head of the infant through the incision. His mouth and nose were suctioned on the field. The cord was clamped and cut and he was handed to the waiting NICU personnel. The placenta was delivered manually and taken off the field. The uterus was then exteriorized and cleared of all clots and debris. The hysterotomy incision was then closed in a running locked fashion using 0 Vicryl. The abdomen was then copiously irrigated with warm normal saline. Following this the uterus was replaced into the abdominal cavity. At this point the muscles were reapproximated in the midline using individual sutures of 0 Vicryl. Following this the fascia was closed in a running fashion using 0 Vicryl. Tissue was then copiously irrigated. Skin was closed in a running fashion using 3-0 Monocryl. The sponge lap needle and instrument counts were correct 2. The patient tolerated the procedure well. She was taken to recovery in stable condition.
[2019-01-18] MEDS: IBUPROFEN PO PRN (12:58)
[2019-01-18 15:15] LABS: Hematocrit 24.4 % (30.3-42.9); Hemoglobin 8.3 gm/dl (10.1-14.3)
[2019-01-19] MEDS: IBUPROFEN PO PRN (03:03)
[2019-01-19] MEDS: FEOSOL PO SCH (10:20)
[2019-01-19] MEDS: SENOKOT S PO SCH (10:20)
[2019-01-19] MEDS: PERCOCET 5/325 PO PRN ×2 (12:22→18:34)
--- NOTE | 2019-01-19 13:31 | Progress Note ---
Assessment and Plan A: POD#3 s/p emergent primary section with sluggish return of bowel function P: Increase frequency of milk of magnesia and ambulation. Anticipate discharge tomorrow. Subjective - Subjective Date of service: 01/19/19 Principal diagnosis: PTL, vaginal bleeding. POD#3 s/p section Interval history: Pt reports passage of a small amount of gas. Ambulating. Decreasing lochia. Patient reports: appetite normal, voiding normally, pain well controlled, flatus (minimal ), ambulating normally, no bowel movement [place]: doing well, in NICU Objective - Vital Signs Latest vital signs: Vital Signs Temp Pulse Resp BP BP Pulse Ox 01/19/19 08:49 97.4 F L 72 18 136/75 99 01/19/19 00:02 98.2 F 78 18 113/63 94 01/18/19 16:27 98.4 F 90 18 126/52 Intake and Output 01/18/19 01/19/19 01/19/19 22:59 06:59 14:59 Intake Total 780 200 Balance 780 200 Intake: Oral 480 200 Intake, Free Water 300 Other: Total, Intake Amount 480 200 - Exam Breasts: Present: deferred Cardiovascular: Present: Regular rate Lungs: Present: Clear to auscultation Abdomen: Present: soft, distention (moderate ), abnormal bowel sounds (hypoactive ) Extremities: Present: normal Incision: Present: normal, intact - Labs Labs: Abnormal lab results 01/18/19 Range/Units 14:52 Hgb 8.3 L (10.1-14.3) gm/dl Hct 24.4 L (30.3-42.9) %
[2019-01-20] MEDS: PERCOCET 5/325 PO PRN ×3 (02:07→15:03)
[2019-01-20] MEDS: FEOSOL PO SCH ×2 (07:27→10:02)
[2019-01-20] MEDS: SENOKOT S PO SCH ×2 (07:27→10:02)
--- NOTE | 2019-01-20 08:13 | Progress Note ---
Assessment and Plan A: POD#4 s/p emergent primary section P: Bowel sounds increased. Give dose of magnesium citrate. Plan to discharge later this afternoon with follow up in 1 week in office. Subjective - Subjective Date of service: 01/20/19 Principal diagnosis: PTL, vaginal bleeding. POD#3 s/p section Interval history: Pt reports increased passage of gas today. No bowel movement yet. Patient reports: appetite normal, voiding normally, pain well controlled, flatus, ambulating normally, no bowel movement [place]: in NICU Objective - Vital Signs Latest vital signs: Vital Signs Temp Pulse Resp BP Pulse Ox 01/20/19 06:00 20 01/20/19 02:07 20 01/19/19 23:05 98.4 F 90 18 119/64 96 01/19/19 18:34 16 01/19/19 16:24 98.4 F 89 16 130/69 98 01/19/19 08:49 97.4 F L 72 18 136/75 99 Intake and Output 01/19/19 01/20/19 01/20/19 22:59 06:59 14:59 Intake Total 500 480 Balance 500 480 Intake: Oral 500 Intake, Free Water 480 Other: Total, Intake Amount 500 # Voids Void 2 1 - Exam Breasts: Present: deferred Cardiovascular: Present: Regular rate Lungs: Present: Clear to auscultation Abdomen: Present: soft, distention (mild ), normal bowel sounds Uterus: Present: fundal height below umbilicus Extremities: Present: edema (trace) Incision: Present: intact
--- NOTE | 2019-01-20 08:14 | Discharge Summary ---
Providers - Providers Date of Admission: 01/14/19 09:08 Date of discharge: 01/20/19 Attending physician: DEMETRA CARDENAS Primary care physician: DEMETRA CARDENAS Hospitalization Reason for admission: vaginal bleeding, other Delivery: Procedure: section, primary low transverse Procedure details: Please see operative report. Incision: intact Other procedures: none complications: none Discharge diagnosis: delivery [place] baby: male Hospital course: Pt was initially admitted for vaginal bleeding and advanced cervical dilation at 25 wks. During her hospitalization, she underwent an emergent primary section for placenta abruption and malpresentation of the fetus which she tolerated well. Her postop[ course was complicated by slow return to bowel function but she met discharge criteria on POD#4. She will follow up in 1 week at the office. Condition at discharge: Stable Disposition: TO HOME OR SELFCARE - Discharge Diagnoses (1) Placenta abruption, delivered, current hospitalization Status: Acute (2) S/P section Status: Acute (3) Anemia Status: Acute Qualifiers: Anemia type: unspecified type Qualified Code(s): D64.9 - Anemia, unspecified (4) labor Status: Acute Qualifiers: labor trimester: second trimester labor delivery status: with delivery in second trimester Fetus number: single or unspecified fetus Qualified Code(s): O60.12X0 - labor second trimester with delivery second trimester, not applicable or unspecified (5) Vaginal bleeding during Status: Acute (6) Obesity Status: Acute Plan - Discharge Medications Prescriptions: Docusate Sodium [Colace] 100 mg PO BID PRN #60 capsule PRN Reason: Constipation Ferrous Sulfate [Feosol 325 MG tab] 325 mg PO BID 3 Days #60 tablet Ibuprofen 800 mg PO Q8H PRN #30 tablet PRN Reason: Pain, Moderate (4-6) oxyCODONE /ACETAMINOPHEN [Percocet 5/325] 1 tab PO Q6HR PRN #40 tablet PRN Reason: Pain - Provider Discharge Summary Activity: routine, no sex for 6 weeks, no heavy lifting 4 weeks, no strenuous exercise Diet: routine Instructions: routine Additional instructions: [] Smoking cessation referral if applicable(refer to patient education folder for contact #) [] Refer to [facility] Booklet Call your doctor immediately for: * Fever > 100.5 * Heavy vaginal bleeding ( >1 pad per hour) * Severe persistent headache * Shortness of breath * Reddened, hot, painful area to leg or breast * Drainage or odor from incision. * Keep incision clean and dry at all times and follow doctor's instructions regarding bathing/showering - Follow up plan Follow up: RERE POLANCO MD [Staff Physician] - 7 Days
[2019-01-20] MEDS ORDERED: CITRATE OF MAGNESIA PO ONE (10:00)
[2019-01-20] MEDS: IBUPROFEN PO PRN (15:02)
[2019-01-20 17:03] VITALS: BP 130/80
== END 2019-01-20 17:56 | disposition home or self-care (01) | DRG 765 ==
LOC: TRG 08:08 → LD 09:08 → OB 01-17 00:10
PROVIDERS: ADMIT Obstetrics & Gynecology; ATTEND Obstetrics & Gynecology
PROC: 10D00Z1 Extraction of Products of Conception, Low, Open Approach (ICD-10-PCS; principal; 2019-01-16)
DX: O32.8XX0 Maternal care for other malpresentation of fetus, not applicable or unspecified (principal); O45.92 Premature separation of placenta, unspecified, second trimester; O60.12X0 Preterm labor second trimester with preterm delivery second trimester, not applicable or unspecified; O76 Abnormality in fetal heart rate and rhythm complicating labor and delivery; O42.912 Preterm premature rupture of membranes, unspecified as to length of time between rupture and onset of labor, second trimester; O99.02 Anemia complicating childbirth; O99.214 Obesity complicating childbirth; D64.9 Anemia, unspecified; E66.9 Obesity, unspecified; Z37.0 Single live birth; Z3A.25 25 weeks gestation of pregnancy; O23.42 Unspecified infection of urinary tract in pregnancy, second trimester
CPT/HCPCS: 36415; 74018; 76805; 80307; 81001; 83735; 85014; 85018; 85025; 86592; 86706; 86762; 86803; 86850; 86900; 86901; 87086; 87806; 88305; 96360; 96365; 96368; 96372; 96374; G0378; J0290; J0595; J0690; J0696; J0702; J1100; J1170; J1885; J2250; J2405; J2590; J2704; J2765; J3010; J3105; J3475; J7030; J7120